=== PATIENT | female | born 1940 ===

== ENCOUNTER 2017-07-06 08:54 | Outpatient (CLI) | payer OTHER ==
[~2017-07-06] VITALS: Ht 152.4 cm; Wt 96.2 kg
== END 2017-07-06 09:15 | disposition home or self-care (01) ==
LOC: OFIC 805 08:54
DX: H61.23 Impacted cerumen, bilateral (principal); R42 Dizziness and giddiness; H90.3 Sensorineural hearing loss, bilateral; H81.11 Benign paroxysmal vertigo, right ear

== ENCOUNTER 2017-07-20 09:25 | Outpatient (CLI) | payer OTHER ==
[~2017-07-20] VITALS: Ht 152.4 cm; Wt 96.2 kg
== END 2017-07-20 09:45 | disposition home or self-care (01) ==
LOC: OFIC 805 09:25
DX: R42 Dizziness and giddiness (principal); H90.3 Sensorineural hearing loss, bilateral

== ENCOUNTER 2019-04-30 07:15 | Outpatient (CLI) | payer OTHER | END 2019-04-30 08:00 | disposition home or self-care (01) | LOC: NUCLEAR 07:15 | DX: I20.8 Other forms of angina pectoris (principal) | CPT/HCPCS: 78452; 93017; A9500; J1250 ==